=== PATIENT | female | born 1965 | race Caucasian/White ===

== ENCOUNTER → 2019-07-07 | Outpatient (CLI) | payer OTHER ==
--- NOTE | 2019-07-07 10:01 | RAD ---
EXAM: Right wrist, 3 views. HISTORY: Pain. COMPARISON: 06/20/2019. FINDINGS: 3 views of the right wrist are obtained. There has been internal fixation of a distal radial metaphyseal fracture with a plate and multiple screws. There has been slight interval healing along the fracture line compared to the prior study. IMPRESSION: Internal fixation of a healing distal radial metaphyseal fracture in anatomic alignment. Electronically signed by: Monica Baldwin MD (07/07/2019 9:58 AM) [id number]
== END ==
LOC: DXRAD 09:39
PROVIDERS: ATTEND Physician Assistant
DX: S59.201D Unspecified physeal fracture of lower end of radius, right arm, subsequent encounter for fracture with routine healing (principal); X58.XXXD Exposure to other specified factors, subsequent encounter; Z98.890 Other specified postprocedural states
CPT/HCPCS: 73110

== ENCOUNTER → 2019-08-07 | Outpatient (CLI) | payer OTHER ==
--- NOTE | 2019-08-07 17:16 | RAD ---
WRIST 3V RIGHT DATE: 08/07/2019 12:00 AM INDICATION: Distal radius fracture: COMPARISON: 07/07/2019, 06/20/2019. FINDINGS/ IMPRESSION: Postsurgical changes of ORIF of the patient's distal radius fracture with intact surgical hardware and unchanged anatomic alignment. Mild progressive healing changes. Electronically signed by: Get Mast MD (08/07/2019 5:13 PM) [id number]
== END ==
LOC: RAD 15:23
PROVIDERS: ATTEND Physician Assistant
DX: S52.591D Other fractures of lower end of right radius, subsequent encounter for closed fracture with routine healing (principal); X58.XXXD Exposure to other specified factors, subsequent encounter; Z98.890 Other specified postprocedural states
CPT/HCPCS: 73110